=== PATIENT | male | born 1970 | race Caucasian/White ===

== ENCOUNTER 2016-09-30 09:45 | Emergency (ER) | payer SELFPAY ==
[2016-09-30 10:24] VITALS: BP 118/76; PULSE 81; TEMP 98.3; BMI 29.2
--- NOTE | 2016-09-30 11:36 | EDPRACDOC ---
- General Information Chief Complaint: Earache Stated Complaint: RT EAR PROBLEM Time Seen by Provider: 09/30/16 11:33 Information Source: Patient Home Medications: Home Medications Ciproflox/Dexameth Otic Susp [Ciprodex Otic Susp] 4 drops AD BID 7 Days Clindamycin [Cleocin] 300 mg PO TID 10 Days 09/30/16 Allergies/Adverse Reactions: Allergies Allergy/AdvReac Type Severity Reaction Status Date / Time diazepam [From Valium] Allergy Mild Confusion Verified 09/30/16 10:23 KLONIPIN Allergy Mild Confusion Uncoded 09/30/16 10:23 - History of Present Illness Onset: 09/27 HPI: PT C/O RIGHT EARACHE FOR 2-3 DAYS, NO FEVERS OR LOSS OF HEARING. Location: right ear Context: Reports: Spontaneous Onset Recently Treated Ear Infection: Reports: Yes (HAS BEEN TAKING AMOXIL THAT WAS LEFT OVER) Pain Severity: Reports: Moderate Associated Signs & Symptoms: Reports: Toothache ED Past Medical History - History Reviewed Yes Nurses notes reviewed and agree except as marked Travel Outside of [place] in the Last 3 Months?: No - Patient Medical History Neurological History: Reports: Seizures (NONE IN 7 YEARS) GI/ History: Reports: Renal Disease, Gastroesophageal Reflux Psychological History: Reports: Anxiety. Denies: Depression - Family Medical History Reports: Stroke, Cardiac Disorders - Social Medical History Smoking Status: Never smoker Social History: Reports: Marijuana Use ETOH: None Substance Abuse: None Lives With: Spouse Lives In: Home EDM Review of Systems - Review of Systems ROS Negative Except as Marked: Yes All systems reviewed and were negative except as marked Constitutional: No Symptoms Reported. negative: Fever, Chills, Weakness, Fatigue, Loss of Appetite Eyes: No Symptoms Reported. negative: Redness, Blurred Vision, Double Vision, Discharge, Pain, Light Sensitive, Photophobia Ears: Pain (RT). negative: Drainage, Ear Pulling, Hearing Loss Throat: No Symptoms Reported. negative: Pain, Swelling Nose: No Symptoms Reported. negative: Congestion, Bleeding, Discharge, Injection, Swelling, Deformity, Ecchymosis, Tender, Abrasion, Laceration Mouth: No Symptoms Reported. negative: Pain, Drooling Respiratory: No Symptoms Reported. negative: Cough, Brassy Cough, Barky Cough, Shortness of Breath, Wheezing, Hemoptysis Cardiovascular: No Symptoms Reported. negative: Chest Pain, Palpitations, Syncope, Edema, Orthopnea, PND, Skin Mottling, Cyanosis Gastrointestinal: No Symptoms Reported. negative: Pain, Constipation, Nausea, Vomiting, Diarrhea, Melena, Formula Intolerance Genitourinary: No Symptoms Reported. negative: Dysuria, Hematuria, Frequency, Discharge, Bleeding, Testicular Pain, Neurological: No Symptoms Reported. negative: Headache, Dizziness, Seizure, Numbness, Weakness, Speech Difficulty, Gait Difficulty Musculoskeletal: No Symptoms Reported. negative: Neck, Chestwall, Ribs, Back, Shoulder, Arm, Elbow, Forearm, Wrist, Hand, Pelvis, Hip, Femur, Knee, Leg, Ankle , Foot Integumentary: No Symptoms Reported. negative: Itching, Rash, Bruising, Wound Allergic/Immunologic: No Symptoms Reported. negative: Hives, Itching Hematologic: No Symptoms Reported. negative: Lymphadenopathy, Easy Bruising, Easy Bleeding Endocrine: No Symptoms Reported. negative: Weight Gain, Weight Loss Psychiatric: No Symptoms Reported. negative: Anxiety, Depression, Hallucinations, Insomnia, Suicidal - Physical Exam Constitutional: No apparent distress, Alert (Awake) Oriented to: Time, Person, Place Last recorded Vital Signs: Last Vital Signs Temp 98.3 F 09/30/16 10:23 Pulse 81 09/30/16 10:23 Resp 18 09/30/16 10:23 BP 118/76 09/30/16 10:23 Pulse Ox 97 09/30/16 10:23 Oxygen Pulse Oxygen Saturation 97 O2 Device Room Air Oxygen Flow Rate Fraction of Inspired Oxygen ( FIO2) - HEENT Head: Normal ( normocephalic) Eye Exam: Normal (PERRL, EOMI, Sclera white) Oropharynx: Normal (Pharynx:Moist without exudate,Gums-no swelling) Tympanic Membrane: Other (FLUID ON RIGHT) ENT EAC: Swelling, Tender (AND REDNESS TO RIGHT EAC) TMJ: Normal Nose: No Symptoms Reported (septum midline) Neck: Normal (FROM, trachea at midline) - Respiratory/Cardiovascular Respiratory: Normal - CTA (BBS clear to auscultation without adventitious sounds ) Cardiovascular: Normal (RRR without murmur, gallop or rub) - GI Auscultation: Normal (NABS) Palpation: Normal (Soft,No rebound or guarding, non distended) Tenderness: Non tender Hinojosa's Sign: Negative - Musculoskeletal Back: Normal (Non-Tender) Extremities: Normal (Normal tone, Pulses 2+ No cyanosis or edema, FROM) - Integumentary Skin: Normal, Warm, Dry Lymphatics: Normal (no adenopathy) - Neurologic Memory Impaired: Normal Motor Function: Normal (Normal tone, Pulses 2+ No cyanosis or edema, FROM) Cranial Nerve: Normal (CN II-X11 intact sensation, strength 5/5) Cerebellar: Normal Mood Description: Normal Perception: Normal - Differential Diagnosis Otitis Externa, Otitis Media Decision Time to Discharge: 11:36 - Departure Disposition: Home Condition: Stable Final Diagnosis: Acute otitis externa Instructions: Otitis Externa (ED) Education/Counseling Given To: Patient Education/Counseling Given Regarding: Diagnosis, Treatment, Prognosis, Follow Up Referrals: None,No Provider [Primary Care Provider] - One Week Prescriptions: Ciproflox/Dexameth Otic Susp [Ciprodex Otic Susp] 4 drops AD BID 7 Days Clindamycin [Cleocin] 300 mg PO TID 10 Days Additional Instructions: RETURN FOR WORSE OR DIFFERENT SYMPTOMS.
== END 2016-09-30 11:46 | disposition home or self-care (01) ==
LOC: ED 09:45 → EDMC 11:46
DX: H60.501 Unspecified acute noninfective otitis externa, right ear (principal); F12.10 Cannabis abuse, uncomplicated
CPT/HCPCS: 99283

== ENCOUNTER 2016-10-24 19:21 | Emergency (ER) | payer SELFPAY ==
[2016-10-24 19:23] VITALS: BMI 29.2
[2016-10-24 19:53] LABS: AUTOMATED BASOPHIL 0.6 % (0-2); AUTOMATED EOSINOPHIL 0.1 % (0-5); AUTOMATED LYMPH 8.7 % (17-44); AUTOMATED MONOCYTE 6.6 % (3-10); MPV 9.1 fL (7.4-10.4)
[2016-10-24 20:05] LABS: PARTIAL THROMB. TIME 21.8 SEC (22-35); PT-INR 1.1
[2016-10-24 20:06] LABS: BLOOD UREA NITROGEN 20 MG/DL (9-20); CALCIUM 9.5 MG/DL (8.4-10.2); CALCULATED OSMOLALITY 276 MOs/Kg (270-290); CHLORIDE 108 mEq/L (98-107); GLUCOSE 104 MG/DL (70-99); SODIUM LEVEL 142 mEq/L (137-146); TOTAL PROTEIN 7.4 G/DL (6.3-8.2)
[2016-10-24 20:17] VITALS: TEMP 97.8
--- NOTE | 2016-10-24 20:34 | DIRPT ---
CLINICAL DATA: Onset of chest pain today. EXAM: PORTABLE CHEST 1 VIEW COMPARISON: 08/29/2015 FINDINGS: The heart size and mediastinal contours are within normal limits. Both lungs are clear. The visualized skeletal structures are unremarkable. IMPRESSION: No active disease. Electronically Signed By: Ney Caputo M.D. On: 10/24/2016 20:31
--- NOTE | 2016-10-24 21:05 | EDPRACDOC ---
- General Information Chief Complaint: Chest Pain Stated Complaint: CP SHARP NAUSEATED SHOB Time Seen by Provider: 10/24/16 20:55 Information Source: Patient Mode of Arrival: Car Home Medications: Home Medications Cyclobenzaprine HCl [Flexeril] 10 mg PO TID PRN #20 tablet 10/24/16 Naproxen Sodium 500 mg PO BID PRN #20 tablet.sa 10/24/16 Allergies/Adverse Reactions: Allergies Allergy/AdvReac Type Severity Reaction Status Date / Time diazepam [From Valium] Allergy Mild Confusion Verified 10/24/16 20:17 KLONIPIN Allergy Mild Confusion Uncoded 10/24/16 20:17 - History of Present Illness Onset: today HPI: 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 PT STATES HE HAD A NORMAL STRESS TEST LESS THAN A YEAR AGO. STATES HIS DAD AND GRANDFATHER BOTH FROM HEART ATTACKS AT YOUNG AGES (DAD AT 46, GRANDFATHER IN HIS 50S). Chest Pain Location: Reports: Left Chest Pain Radiation: Reports: Abdomen Symptoms Occur: Reports: Suddenly, At Rest Cardiac Risk Factors: Reports: Smoker, Family History Cardiac History of: Reports: None PE Risk Factors: Reports: None Medications within 24 Hours: Reports: None Prehospital Care: Reports: None Pain Came On: Reports: Suddenly Pain Status: Present Now Pain Description: Reports: Sharp, Aching Pain Severity: Mild Pain Worsens With: Reports: Breathing, Movement Pain Improves With: Reports: Rest Associated Signs and Symptoms: Reports: SOB, Palpitations, Nausea. Denies: Diaphoretic, Abdominal Pain, Vomiting, Calf Pain or Swelling, Chest Rash ED Past Medical History - History Reviewed Yes Nurses notes reviewed and agree except as marked - Patient Medical History Neurological History: Reports: Seizures (NONE IN 7 YEARS) GI/ History: Reports: Renal Disease, Gastroesophageal Reflux Psychological History: Reports: Anxiety. Denies: Depression Systemic History: Denies: Cancer - Family Medical History Reports: Stroke, Cardiac Disorders - Social Medical History Smoking Status: Never smoker Social History: Reports: Marijuana Use ETOH: None Substance Abuse: Illicit Drugs (THC) EDM Review of Systems - Review of Systems Constitutional: negative: Chills, Fever Eyes: negative: Blurred Vision, Double Vision Ears: negative: Drainage Throat: negative: Pain Nose: negative: Congestion, Discharge Respiratory: Shortness of Breath. negative: Cough, Wheezing Cardiovascular: Chest Pain, Palpitations Gastrointestinal: Nausea, Pain. negative: Diarrhea, Vomiting Genitourinary: negative: Dysuria, Frequency Neurological: Dizziness. negative: Headache, Numbness, Weakness Musculoskeletal: No Symptoms Reported Integumentary: No Symptoms Reported - Physical Exam Constitutional: Alert (Awake), No apparent distress Oriented to: Time, Person, Place Last recorded Vital Signs: Last Vital Signs Temp 97.8 F 10/24/16 20:00 Pulse 71 10/24/16 20:57 Resp 20 10/24/16 20:57 BP 133/80 10/24/16 20:57 Pulse Ox 99 10/24/16 20:57 Oxygen Pulse Oxygen Saturation 99 O2 Device Room Air Oxygen Flow Rate Fraction of Inspired Oxygen ( FIO2) - HEENT Head: Normal ( normocephalic) Eye Exam: Normal (PERRL, EOMI, Sclera white) Oropharynx: Normal (Pharynx:Moist without exudate,Gums-no swelling) Tympanic Membrane: Normal ENT EAC: Normal TMJ: Normal Nose: No Symptoms Reported (septum midline) Neck: Normal (FROM, trachea at midline) - Respiratory/Cardiovascular Respiratory: Normal - CTA (BBS clear to auscultation without adventitious sounds ) Cardiovascular: Normal (RRR without murmur, gallop or rub) - GI Auscultation: Normal (NABS) Palpation: Normal (Soft,No rebound or guarding, non distended) Tenderness: Non tender Hinojosa's Sign: Negative - Musculoskeletal Back: Normal (Non-Tender) Extremities: Normal (Normal tone, Pulses 2+ No cyanosis or edema, FROM) - Integumentary Skin: Normal, Warm, Dry Lymphatics: Normal (no adenopathy) - Neurologic Memory Impaired: Normal Motor Function: Normal (Normal tone, Pulses 2+ No cyanosis or edema, FROM) Cranial Nerve: Normal (CN II-X11 intact sensation, strength 5/5) Cerebellar: Normal Mood Description: Normal Perception: Normal ED Chest Pain Exam - Respiratory/Cardiovascular Respiratory: Normal - CTA (clear to auscultation without adventitious sounds) Cardiovascular/Chest: Normal (RRR without murmur, gallop or rub) Radial Pulse: Normal Carotid Arteries: Normal Edema: negative: 1+, 2+, 3+, 4+, 5, 6 Chest Palpation: Tender, Reproduces Pain - Differential Diagnosis Angina, Chest wall pain, Costochondritis, Gastritis, Pericarditis, Pancreatitis , Pneumonia, Pneumothorax - Action Patient received Aspirin within last 24 hours?: No ASA given in the ED: No Aspirin therapy held due to: Other-specify below* (NOT INDICATED) Patient received Beta Divine within last 24hrs: No Beta Divine held due to: Other-specify below* (NOT INDICATED) - Re-evaluation Re-evaluation 1 Re-evaluation Time: 22:50 (NO DISTRESS, NL TROP X 2, NL EKG, RECENT NL STRESS TEST) - Results 10/24/16 19:30 10/24/16 19:30 WBC 17.5 xk/uL (3.8-10.8) H 10/24/16 19:30 RBC 5.07 xM/uL (4.70-6.10) 10/24/16 19:30 Hgb 12.1 g/dL (14.0-18.0) L 10/24/16 19:30 Hct 38.2 % (42-52) L 10/24/16 19:30 MCV 75 fL (80-94) L 10/24/16 19:30 MCH 24.0 pg (27-32) L 10/24/16 19:30 MCHC 31.8 g/dl (33-36) L 10/24/16 19:30 RDW 15.8 % (11.5-14.5) H 10/24/16 19:30 Plt Count 272 xk/uL (130-400) 10/24/16 19:30 MPV 9.1 fL (7.4-10.4) 10/24/16 19:30 Neut % (Auto) 84.0 % (45-76) H 10/24/16 19:30 Lymph % (Auto) 8.7 % (17-44) L 10/24/16 19:30 Wilkin % (Auto) 6.6 % (3-10) 10/24/16 19:30 Eos % (Auto) 0.1 % (0-5) 10/24/16 19:30 Baso % (Auto) 0.6 % (0-2) 10/24/16 19:30 Absolute Neuts (auto) 14.70 xk/uL (1.7-8.2) H 10/24/16 19:30 Absolute Lymphs (auto) 1.40 xk/uL (0.65-4.75) 10/24/16 19:30 PT 11.0 SEC (9.2-11.2) 10/24/16 19:30 INR 1.1 10/24/16 19:30 APTT 21.8 SEC (22-35) L 10/24/16 19:30 Sodium 142 mEq/L (137-146) 10/24/16 19:30 Potassium 3.7 mEq/L (3.5-5.1) 10/24/16 19:30 Chloride 108 mEq/L (98-107) H 10/24/16 19:30 Carbon Dioxide 22 mMOL/L (22-33) 10/24/16 19:30 Anion Gap 16 mEq/L (8-16) 10/24/16 19:30 BUN 20 MG/DL (9-20) 10/24/16 19:30 Creatinine 1.00 MG/DL (0.66-1.25) 10/24/16 19:30 Estimated GFR (MDRD) > 60 mL/min (>=60) 10/24/16 19:30 Glucose 104 MG/DL (70-99) H 10/24/16 19:30 Calculated Osmolality 276 MOs/Kg (270-290) 10/24/16 19:30 Calcium 9.5 MG/DL (8.4-10.2) 10/24/16 19:30 Total Bilirubin 0.6 MG/DL (0.2-1.3) 10/24/16 19:30 AST 39 IU/L (17-59) 10/24/16 19:30 ALT 41 IU/L (21-72) 10/24/16 19:30 Alkaline Phosphatase 70 IU/L (38-126) 10/24/16 19:30 Troponin I < 0.01 ng/mL (<.04) 10/24/16 19:30 Gxd-O-Pfdiqrmfkyh Pept 69 pg/mL (0-450) 10/24/16 19:30 Total Protein 7.4 G/DL (6.3-8.2) 10/24/16 19:30 Albumin 4.4 G/DL (3.5-5.0) 10/24/16 19:30 Lab Results 10/24/16 10/24/16 10/24/16 19:30 19:30 19:30 WBC 17.5 H RBC 5.07 Hgb 12.1 L Hct 38.2 L MCV 75 L MCH 24.0 L MCHC 31.8 L RDW 15.8 H Plt Count 272 MPV 9.1 Neut % (Auto) 84.0 H Lymph % (Auto) 8.7 L Wilkin % (Auto) 6.6 Eos % (Auto) 0.1 Baso % (Auto) 0.6 Absolute Neuts (auto) 14.70 H Absolute Lymphs (auto) 1.40 PT 11.0 INR 1.1 APTT 21.8 L Sodium 142 Potassium 3.7 Chloride 108 H Carbon Dioxide 22 Anion Gap 16 BUN 20 Creatinine 1.00 Estimated GFR (MDRD) > 60 Glucose 104 H Calculated Osmolality 276 Calcium 9.5 Total Bilirubin 0.6 AST 39 ALT 41 Alkaline Phosphatase 70 Troponin I < 0.01 Hdh-[id number]-Wngecoscyby Pept 69 Total Protein 7.4 Albumin 4.4 Laboratory Results - last 24 hr 10/24/16 10/24/16 10/24/16 19:30 19:30 19:30 WBC 17.5 H RBC 5.07 Hgb 12.1 L Hct 38.2 L MCV 75 L MCH 24.0 L MCHC 31.8 L RDW 15.8 H Plt Count 272 MPV 9.1 Neut % (Auto) 84.0 H Lymph % (Auto) 8.7 L Wilkin % (Auto) 6.6 Eos % (Auto) 0.1 Baso % (Auto) 0.6 Absolute Neuts (auto) 14.70 H Absolute Lymphs (auto) 1.40 PT 11.0 INR 1.1 APTT 21.8 L Sodium 142 Potassium 3.7 Chloride 108 H Carbon Dioxide 22 Anion Gap 16 BUN 20 Creatinine 1.00 Estimated GFR (MDRD) > 60 Glucose 104 H Calculated Osmolality 276 Calcium 9.5 Total Bilirubin 0.6 AST 39 ALT 41 Alkaline Phosphatase 70 Troponin I < 0.01 Jil-C-Lxbbxgmpnzv Pept 69 Total Protein 7.4 Albumin 4.4 Laboratory Results 10/24/16 19:30 10/24/16 19:30 - EKG EKG #1 EKG Time: 19:26 -: Yes EKG interpreted by me Rate: bpm: 80 [place]: Normal Rhythm: NSR Block: None Hypertrophy: None ST: Normal Comparison: 08/29/15 (NO CHANGE) - Diagnostic Imaging CXR Image interpreted by: Radiologist PORTABLE CHEST 1 VIEW COMPARISON: 08/29/2015 FINDINGS: The heart size and mediastinal contours are within normal limits. Both lungs are clear. The visualized skeletal structures are unremarkable. IMPRESSION: No active disease. Decision Time to Discharge: 22:58 - Departure Disposition: Home Condition: Stable Final Diagnosis: Chest wall pain Instructions: Chest Wall Pain Education/Counseling Given To: Patient Education/Counseling Given Regarding: Diagnosis, Treatment, Prognosis, Follow Up Referrals: Marva Thompson MD [Primary Care Provider] - One Week Prescriptions: New Cyclobenzaprine HCl [Flexeril] 10 mg PO TID PRN #20 tablet PRN Reason: Muscle Spasms Naproxen Sodium 500 mg PO BID PRN #20 tablet.sa PRN Reason: Pain Additional Instructions: APPLY WARM COMPRESSES TO AREA OF SORENESS 20 MINS AT A TIME 4 - 5 TIMES DAILY NEEDED FOR PAIN, RETURN TO THE ED FOR ANY WORSENING SYMPTOMS OR CONCERNS.
[2016-10-24] MEDS ORDERED: NS 1,000 ML IV ONE (21:06)
[2016-10-24] MEDS ORDERED: KETOROLAC TROMETH 30 MG/ML VIAL IV ONE (21:06)
[2016-10-24 21:54] VITALS: PULSE 78
[2016-10-24 23:26] VITALS: BP 122/79
== END 2016-10-24 23:20 | disposition home or self-care (01) ==
LOC: ED 19:21
DX: R07.89 Other chest pain (principal)
CPT/HCPCS: 36415; 71010; 80053; 83880; 84484; 85025; 85610; 85730; 93005; 96361; 96374; 99283; J1885